=== PATIENT | male | born 1995 | race African-American/Black ===

== ENCOUNTER 2017-04-04 20:11 | Emergency (ER) | payer SELFPAY ==
[2017-04-04] MEDS ORDERED: Diphtheria,Pertussis(Acell),Tetanus Vaccine 0.5 ML Syringe IM ONE (21:31)
--- NOTE | 2017-04-04 21:37 | EDM.PDOC ---
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 Patient otherwise is in his usual state of good health without any systemic complaints and is right-hand dominant. The came because it would not stop bleeding. He has no specific pain in the area and is able to flex and extend at the thumb. Review of systems: As per history of present illness and below otherwise all systems reviewed and negative. Past medical history: As per history of present illness and as reviewed below otherwise noncontributory. Surgical history: As per history of present illness and as reviewed below otherwise noncontributory. Social history: No reported history of drug or alcohol abuse. Family history: As per history of present illness and as reviewed below otherwise noncontributory. Physical exam: HEENT: Atraumatic, normocephalic, negative for conjunctival pallor or scleral icterus, mucous membranes moist, throat clear, neck supple, nontender, trachea midline. Lungs: Clear to auscultation, breath sounds equal bilaterally, chest nontender. Heart: S1S2, regular rate and rhythm no overt murmurs Abdomen: Soft, nondistended, nontender. NABS. Pelvis: Deferred Genitourinary: Deferred. Rectal: Deferred. Extremities: Atraumatic with full range of motion of all extremities with the exception of left thumb which the patient is able to flex and extend but there is a 1.75 x 1.0 cm oval tissue loss seen with oozing of blood. The distal aspect of the nail is also missing but the wound itself is very clean and not jagged are regular. The remainder of the nail is in place and the nailbed is not disruptive. The legs are, negative for cords or calf pain. Neurovascular unremarkable. Neuro: Awake, alert, oriented. Cranial nerves II through XII unremarkable. Cerebellum unremarkable. Motor and sensory unremarkable throughout. Exam nonfocal. Diagnostics: [] Therapeutics: [] Tdap, cleansing, Gelfoam, tube gauze Nursing is cleanse the wound and Will place , Gelfoam and tube gauze to achieve hemostasis. Impression: Left thumb laceration with tissue loss Definitive disposition and diagnosis as appropriate pending reevaluation and review of above. left thumb Pain Score (Numeric/FACES): 8 - Related Data Allergies Allergy/AdvReac Type Severity Reaction Status Date / Time No Known Allergies Allergy Verified 04/04/17 21:16 Home Meds: Home Meds . [No Known Home Meds] 04/04/17 [History] Past Medical History HEENT History: Reports: None Cardiovascular History: Reports: None Respiratory History: Reports: None Gastrointestinal History: Reports: None Genitourinary History: Reports: None Musculoskeletal History: Reports: None Neurological History: Reports: None Psychiatric History: Reports: None Endocrine/Metabolic History: Reports: None Hematologic History: Reports: None Immunologic History: Reports: None Oncologic (Cancer) History: Reports: None Dermatologic History: Reports: None - Infectious Disease History Infectious Disease History: Reports: None - Past Surgical History Head Surgeries/Procedures: Reports: None Social & Family History - Family History Family Medical History: Noncontributory - Tobacco Use Smoking Status *Q: Current Some Day Smoker Years of Tobacco use: 4 Packs/Tins Daily: 1 - Caffeine Use Caffeine Use: Reports: Energy Drinks - Recreational Drug Use Recreational Drug Use: No ED ROS GENERAL - Review of Systems Review Of Systems: ROS reveals no pertinent complaints other than HPI. ED EXAM, SKIN/RASH Exam: See Below (See dictation) Course - Vital Signs Last Recorded V/S: Last Vital Signs Temp Pulse 88 04/04/17 21:16 Resp 18 04/04/17 21:16 BP 143/92 H 04/04/17 21:16 Pulse Ox 98 04/04/17 21:16 - Orders/Labs/Meds Orders: Active Orders 24 hr Category Date Time Status Communication Order [RC] STAT Care 04/04/17 21:30 Ordered Vaccines to be Administered [RC] PER UNIT ROUTINE Care 04/04/17 21:31 Ordered Diphth,Pertuss(Acell),Tet Vac [Adacel] Med 04/04/17 21:31 Once 0.5 ml IM .ONCE ONE Departure - Departure Time of Disposition: 21:35 Disposition: Home, Self-Care 01 Condition: Good Clinical Impression: Laceration of thumb Qualifiers: Encounter type: initial encounter Damage to nail status: with damage Foreign body presence: without foreign body Laterality: left Qualified Code(s): S61.112A - Laceration without foreign body of left thumb with damage to nail, initial encounter - Discharge Information Referrals: PCP,None [Primary Care Provider] - Additional Instructions: The following information is given to patients seen in the emergency department who are being discharged to home. This information is to outline your options for follow-up care. We provide all patients seen in our emergency department with a follow-up referral. The need for follow-up, as well as the timing and circumstances, are variable depending upon the specifics of your emergency department visit. If you don't have a primary care physician on staff, we will provide you with a referral. We always advise you to contact your personal physician following an emergency department visit to inform them of the circumstance of the visit and for follow-up with them and/or the need for any referrals to a consulting specialist. The emergency department will also refer you to a specialist when appropriate. This referral assures that you have the opportunity for followup care with a specialist. All of these measure are taken in an effort to provide you with optimal care, which includes your followup. Under all circumstances we always encourage you to contact your private physician who remains a resource for coordinating your care. When calling for followup care, please make the office aware that this follow-up is from your recent emergency room visit. If for any reason you are refused follow-up, please contact the [facility] emergency department at and ask to speak to the emergency department charge nurse. [facility] Primary care- Internal Medicine and Family [facility] [address] [place] [id number] [facility] Specialty clinic-Plastic Surgery and Hand Surgery Professional Building [address] [place] [id number] Please keep the dressing that was placed in the ER on until Thursday and then remove the tube gauze but do not touch the Gelfoam. Redressed with gauze but no Band-Aids. Please call and follow-up with your provider in the clinic or our hand specialist in the next few days for reevaluation further care and return to ER as needed and as discussed. If the wound starts to bleed please place pressure for a minimum of 5 minutes to stop the bleeding. - My Orders Last 24 Hours: My Active Orders 04/04/17 21:30 Communication Order [RC] STAT 04/04/17 21:31 Vaccines to be Administered [RC] PER UNIT ROUTINE Diphth,Pertuss(Acell),Tet Vac [Adacel] 0.5 ml IM .ONCE ONE - Assessment/Plan Last 24 Hours: My Active Orders 04/04/17 21:30 Communication Order [RC] STAT 04/04/17 21:31 Vaccines to be Administered [RC] PER UNIT ROUTINE Diphth,Pertuss(Acell),Tet Vac [Adacel] 0.5 ml IM .ONCE ONE
== END 2017-04-04 22:36 | disposition home or self-care (01) ==
LOC: MW.ED 20:11
DX: S61.112A Laceration without foreign body of left thumb with damage to nail, initial encounter (principal); F17.210 Nicotine dependence, cigarettes, uncomplicated; W26.0XXA Contact with knife, initial encounter; Y92.511 Restaurant or cafe as the place of occurrence of the external cause; Y99.0 Civilian activity done for income or pay; Z23 Encounter for immunization
CPT/HCPCS: 90471; 90715; 99282-25; 99283